=== PATIENT | male | born 1995 | race Two or more races ===

== ENCOUNTER 2020-02-02 04:36 | Emergency (ER) | payer SELFPAY ==
[~2020-02-02] VITALS: Ht 172.7 cm; Wt 88.9 kg
--- NOTE | 2020-02-02 04:50 | Emergency Room Report ---
History of Present Illness General Chief Complaint: To Be Triaged Source: Patient Present Illness HPI This is a 24-year-old male with a history of heroin abuse. He presents with chief complaint of right-sided chest pain. Onset for over a week. He also has subjective fever chills and productive cough. Worse with inspiration. Better with rest. Denies any nausea vomiting. Denies any diarrhea. Pain is 8 out of 10. Allergies: Coded Allergies: No Known Allergies (Unverified , 02/02/20) COVID-19 Screening Contact w/high risk pt: No Recent Travel to affected area: No Experienced COVID-19 symptoms?: No Patient History Past Medical History: see triage record, old chart reviewed Past Surgical History: none Pertinent Family History: none Social History: Reports: drug use Immunizations: other Reviewed Nursing Documentation: PMH: Agreed; PSxH: Agreed Review of Systems Constitutional: Reports: chills, sweats, fever Eye: Denies: eye pain, blurred vision ENT: Denies: ear pain, nose congestion, throat swelling Respiratory: Reports: cough, shortness of breath Cardiovascular: Reports: chest pain; Denies: palpitations Gastrointestinal: Denies: abdominal pain, diarrhea, nausea, vomiting Musculoskeletal: Denies: back pain, joint pain Skin: Denies: rash Neurological: Denies: headache, numbness Endocrine: Denies: increased thirst, increased urine Hematologic/Lymphatic: Denies: easy bruising All Other Systems: negative except mentioned in HPI Physical Exam Vitals unremarkable Sp02 EP Interpretation: reviewed, normal General Appearance: well appearing, no apparent distress, alert Head: normocephalic, atraumatic Eyes: bilateral eye PERRL, bilateral eye EOMI ENT: hearing grossly normal, normal pharynx Neck: full range of motion, supple, no meningismus Respiratory: chest non-tender, lungs clear, normal breath sounds, decreased breath sounds Cardiovascular #1: regular rate, rhythm, no murmur Gastrointestinal: normal bowel sounds, non tender, no mass, no organomegaly, no bruit, non-distended Musculoskeletal: back normal, normal range of motion, gait/station normal Psychiatric: mood/affect normal Medical Decision Making Diagnostic Impression: Primary Impression: Pneumonitis Additional Impression: Heroin abuse ER Course Patient presents with right upper chest pain. He does have a cough and subjective fever. This may be be COVID-19 infection. We will put him on antibiotics. Oxygenation is normal. Patient felt better now. Does not meet criteria for emergent testing. I hear no murmur to indicate endocarditis. Will discharge home. Chest X-Ray Diagnostic Results Chest X-Ray Diagnostic Results : Chest X-Ray Ordered: Yes # of Views/Limited/Complete: 1 View Indication: Chest Pain EP Interpretation: Yes Interpretation: no consolidation, no effusion, no pneumothorax, no acute cardiopulmonary disease Impression: No acute disease Electronically Signed by: Jay Hurt MD Status: improved Disposition: HOME, SELF-CARE Condition: Stable Scripts Azithromycin* (ZITHROMAX*) 250 Mg Tablet 250 MG ORAL DAILY, #4 TAB Prov: Jay Hurt MD 02/02/20 Additional Instructions: Follow-up with your doctor in 7 days. Abstain from drugs and alcohol. Return if worse. Jay Hurt MD Feb 02, 2020 04:50
--- NOTE | 2020-02-02 04:58 | NUR ---
ED Nurse Note: PT WALKED TO ED FROM HOME C/O FLU LIKE SYMPTOMS SINCE MONDAY. PT C/O SOB, CHEST PAIN. PT DENIES ANY TRAVEL OR CONTACT WITH ANYONE WITH KNOWN INFECTION RECENTLY. TEMP 98.2 AT TRIAGE. [employer].
[2020-02-02 05:00] VITALS: BP 116/76
[2020-02-02] MEDS ORDERED: Acetaminophen 500mg (ES) tab ORAL ONE (05:00)
--- NOTE | 2020-02-02 05:15 | NUR ---
ED Nurse Note: XR AT BEDSIDE
[2020-02-02] MEDS ORDERED: ZITHROMAX250 MG ORAL (05:30)
[2020-02-02] MEDS ORDERED: Azithromycin 250mg tab ORAL ONE (05:30)
[2020-02-02 05:35] VITALS: BP 116/76
--- NOTE | 2020-02-02 05:35 | NUR ---
ER DISCHARGE NOTE: Patient is cleared to be discharged per ERMD, pt is aox4, on room air, with stable vital signs. pt was given dc and prescription instructions, pt was able to verbalize understanding, pt id band removed without complications. pt is able to ambulate with steady gait. pt took all belongings.
--- NOTE | 2020-02-02 05:37 | Diagnostic Imaging Report ---
EXAM: XR Chest, 1 View CLINICAL HISTORY: CP TECHNIQUE: Frontal view of the chest. COMPARISON: None. FINDINGS: Lungs: Unremarkable. No consolidation. Pleural space: Unremarkable. No pneumothorax. Heart: Unremarkable. No cardiomegaly. Mediastinum: Unremarkable. Bones/joints: Unremarkable. Other findings: Normal chest x-ray. IMPRESSION: No acute findings.
== END 2020-02-02 05:35 | disposition home or self-care (01) ==
LOC: EMR 05:03
DX: J18.9 Pneumonia, unspecified organism (principal); F11.10 Opioid abuse, uncomplicated
CPT/HCPCS: 71045; 99283